=== PATIENT | male | born 2000 | race African-American/Black ===

== ENCOUNTER 2018-05-04 14:20 | Emergency (ER) | payer OTHER ==
[2018-05-04 14:25] VITALS: BP 153/74
[2018-05-04] MEDS ORDERED: AZITHROMYCIN 250 MG TABLET PO STA (14:30)
--- NOTE | 2018-05-04 14:32 | ED Physician Documentation ---
History of Present Illness - Stated complaint Stated Complaint: MALE - Chief complaint Chief Complaint: General - History obtained from History obtained from: Patient - History of Present Illness Timing: Today Pain level max: 0 Pain level now: 0 - Additonal information Additional information: 18-year-old male, girlfriend tested positive for chlamydia on . Here for treatment. He is asymptomatic. Nothing makes it better or worse. Denies any penile discharge, ulcerations, swelling, inguinal swelling, testicular pain etc. they are in a monogamous relationship. Has not had STD testing Review of Systems Constitutional: denies: Fever, Chills Cardiac: denies: Chest pain / pressure Respiratory: denies: Cough GI: denies: Vomiting, Diarrhea Skin: denies: Rash Musculoskeletal: denies: Neck pain, Back pain Neurologic: denies: Headache PD PAST MEDICAL HISTORY - Past Medical History Past Medical History: No - Past Surgical History Past Surgical History: No - Present Medications Home Medications: Ambulatory Orders Medication Instructions Recorded Confirmed No Known Home Medications 05/04/18 05/04/18 - Allergies Allergies/Adverse Reactions: Allergies Allergy/AdvReac Type Severity Reaction Status Date / Time No Known Drug Allergies Allergy Verified 05/04/18 14:25 - Living Situation Living Arrangement: reports: At home - Social History Does the pt have substance abuse?: No PD ED PE NORMAL - General General: Alert and oriented X 3, Well developed/nourished - HEENT HEENT: Moist mucous membranes - Neck Neck: Supple, no meningeal sign - Cardiac Cardiac: RRR - Respiratory Respiratory: No respiratory distress, Clear bilaterally - Abdomen Abdomen: Soft, Non tender - Male Male : Pt declined - Back Back: No CVA TTP - Derm Derm: Warm and dry - Neuro Neuro: Alert and oriented X 3 Results - Vitals Vitals: Vital Signs - 24 hr 05/04/18 14:23 Temperature 36.6 C Heart Rate 83 Respiratory 18 Rate Blood Pressure 153/74 H O2 Saturation 100 Oxygen O2 Source Room air PD MEDICAL DECISION MAKING - ED course Complexity details: considered differential, d/w patient ED course: Patient given azithromycin 1 g by urine was sent for gonorrhea and Chlamydia testing. He will follow-up with his doctor for repeat testing, full STI testing and HIV testing patient counseled regarding signs and symptoms for which I believe and urgent re-evaluation would be necessary. Patient with good understanding of and agreement to plan and is comfortable going home at this time This document was made in part using voice recognition software. While efforts are made to proofread this document, sound alike and grammatical errors may occur. Departure - Departure Disposition: 01 Home, Self Care Clinical Impression: Chlamydia contact Condition: Good Instructions: ED STD Male Treated Follow-Up: your,doctor in 2 weeks [Other] Comments: Your urine was sent for gonorrhea and Chlamydia testing. You were given a dose of azithromycin here for chlamydia. Please follow-up with your doctor for full sexually transmitted infection testing as well as HIV testing. you should use condoms for sexual activity. You and your partner should both be retested for cure so you do not become reinfected
== END 2018-05-04 14:46 | disposition home or self-care (01) ==
LOC: ED 14:20
DX: Z20.2 Contact with and (suspected) exposure to infections with a predominantly sexual mode of transmission (principal)
CPT/HCPCS: 87491; 87591; 99282; A9270